=== PATIENT | male | born 1935 | race Caucasian/White ===

== ENCOUNTER 2018-01-19 17:29 | Emergency (ER) | payer OTHER ==
[~2018-01-19] VITALS: Ht 177.8 cm; Wt 77.1 kg
--- NOTE | 2018-01-19 17:37 | ED MVC/FALL/TRAUMA COMPLAINT ---
History of Present Illness General Chief Complaint: Fall Stated Complaint: S/P FALL, HIT BACK OF HEAD +LAC Source: patient Exam Limitations: no limitations Vital Signs & Intake/Output Vital Signs & Intake/Output Vital Signs Date Time Temp Pulse Resp B/P B/P Pulse O2 O2 Flow FiO2 Mean Ox Delivery Rate 01/190 98 Room Air 01/19 2043 98.4 88 18 137/78 95 Room Air Room Air 01/19 1745 98.1 72 18 172/82 97 Room Air ED Intake and Output 01/20 0000 01/19 1200 Intake Total 0 Output Total Balance 0 Intake, IV 0 Patient 170 lb Weight Weight Estimated Measurement Method Allergies Coded Allergies: Penicillins (Intermediate, UNKNOWN 01/19/18) Triage Nurses Notes Reviewed? yes Onset: Abrupt Duration: constant Timing: single episode today Severity: moderate Severity Numbers: 5 HPI: Patient is a 82-year-old male with a past medical history of GERD who presents emergency room stating today that while wearing his boots he was walking into [facility] where it was known to be raining outside patient slipped on the cement falling backwards striking the posterior aspect of his head to the pavement resulting in a laceration and acute onset of neck pain and right shoulder pain Patient denies any preceding episode of lightheaded sensation or dizziness, denies any loss of consciousness states tetanus is up-to-date Denies any lower extremity pain denies any left upper extremity pain denies any right elbow or wrist pain denies any abdominal pain chest pain with low back pain. (Wyatt Gaona) Reconcile Medications No Known Home Medications (Filiberto Mohamud DO) Past History Medical History Any Pertinent Medical History? see below for history Gastrointestinal: GERD Surgical History Surgical History: non-contributory Family History Hx Contributory? No (Wyatt Gaona) Review of Systems Review of Systems Constitutional: Reports: no symptoms. Eyes: Reports: no symptoms. Ears, Nose, Throat, Mouth: Reports: no symptoms. Respiratory: Reports: no symptoms. Cardiovascular: Reports: no symptoms. Gastrointestinal/Abdominal: Reports: no symptoms. Genitourinary: Reports: no symptoms. Musculoskeletal: Reports: see HPI. Skin: Reports: see HPI. Neurological/Psychological: Reports: see HPI. All Other Systems: Reviewed and Negative (Wyatt Gaona) Physical Exam Physical Exam General Appearance: no apparent distress, alert, comfortable Head: evidence of injury Eyes: Bilateral: normal appearance, PERRL, EOMI. 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 No CVA/TIA Diagnosis No Sepsis Present: No Sepsis Focused Exam Completed? No (Magdalena MCKINNEY,Wyatt) Progress Differential Diagnosis: aoritic dissection, abd injury, C/T/L spine injury, ext injury, ICH, pelvis injury, pnemothorax, spinal cord injury Plan of Care: Orders Procedure Date/time Status XRY-SHOULDER COMPLETE-RIGHT 01/19 1737 Active Patient upon initial evaluation was resting complete at bedside denies any alcohol intake no signs of intoxication Patient was offered pain medications and declines CT neck and head were unremarkable X-rays of the right shoulder was unremarkable for osseous injury patient had improvement of his decreased range of motion upon initial presentation discussed results with patient The scalp laceration site was topically placed with L.E.T. Irrigated with 500 mL of sterile water and Betadine was placed with sterile technique in which that I placed #1 staple margins were revised bacitracin was applied Discussed results with patient for the imaging showing no acute findings Diagnostic Imaging: Viewed by Me: Radiology Read, CT Scan. Radiology Impression: no acute abnormality, no fracture Comments: PATIENT: WYATT TABARES PRESENT AGE: 82 PATIENT ACCOUNT NO: [id number] : 33 LOCATION: [facility] ORDERING PHYSICIAN: Wyatt MCKINNEY SERVICE DATE: 01/19/18-1736 EXAM TYPE: RAD - XRY-SHOULDER COMPLETE-RIGHT EXAMINATION: SHOULDER 4 VIEWS, RIGHT CLINICAL INFORMATION: Right shoulder pain. COMPARISON: None. TECHNIQUE: AP views of the right shoulder were obtained in internal and external rotation. In addition, axillary and Y views were obtained. FINDINGS: There are no fractures or dislocations. The humeral head is seated within a well-formed glenoid. The AC joint is intact. There is age-appropriate degenerative change to the right AC joint. IMPRESSION: Age-appropriate appearance to the shoulder without evidence of acute injury. DICTATED BY: Pete Myles MD DATE/TIME DICTATED:01/19/181924 GLOST TILE SHADER:TODD DATE/TIME TRANSCRIBED:01/19/181924 PATIENT: WYATT TABARES PRESENT AGE: 82 PATIENT ACCOUNT NO: [id number] : 33 LOCATION: [facility] ORDERING PHYSICIAN: Wyatt MCKINNEY SERVICE DATE: 01/19/18 EXAM TYPE: CAT - CT CERV SPINE WO IV CONTRAST; CT HEAD WO IV CONTRAST EXAMINATIONS: CT HEAD WITHOUT CONTRAST AND CT CERVICAL SPINE WITHOUT CONTRAST CLINICAL INFORMATION: Trauma to head and neck. Pain. COMPARISON: None. TECHNIQUE: Contiguous helical images of the brain were obtained without IV contrast. Contiguous helical images of the cervical spine were obtained without IV contrast. Multiplanar reconstructions were performed. DLP: 997 mGy-cm. FINDINGS: There are no pathologic extra-axial fluid collections. The lateral, third, fourth ventricles are nondilated and concordant with the appearance of the sulci. There is no evidence for acute intraparenchymal hemorrhage or infarct. There is neither mass nor mass effect. There is no shift of midline structures. The paranasal sinuses and mastoid air cells are clear. There are no osseous lesions. The cervical vertebra are in normal alignment. There is disc height loss at C3/C4 and C4/C5 and C6/C7. Disc heights and vertebral heights are otherwise well-preserved. There are no fractures. There is no prevertebral soft tissue swelling. There is no cervical lymphadenopathy. The visualized lung apices are clear. IMPRESSION: No evidence for acute intracranial injury. No evidence for acute injury to the cervical spine. Age-appropriate degenerative change within the cervical spine. DICTATED BY: Pete Myles MD DATE/TIME DICTATED:01/19/181814 GLOST TILE SHADER:RON.TODD DATE/TIME TRANSCRIBED:01/19/181814 (Wyatt Gaona) Departure Departure Disposition: HOME OR SELF CARE Condition: Stable Clinical Impression Primary Impression: Scalp laceration Secondary Impressions: Fall, Right shoulder pain Additional Instructions: As discussed if no better in 3 days for your shoulder [facility], begin icing 20 minutes every 2 hours begin [id number] Motrin or Tylenol for pain. Begin to apply bacitracin to the scalp wound once a day for the following 4 days then return to emergency room in 7 days for staple removal. If you note signs infection or developing new concerning symptom return to emergency room. Departure Forms: Customer Survey General Discharge Information (Wyatt Gaona) Departure Prescriptions: Current Visit Scripts No Known Home Medications PA/TRANSVERSE ABDOMINAL MUSCLE NURSE Co-Sign Statement Statement: ED Attending supervision documentation- [] I saw and evaluated the patient. I have also reviewed all the pertinent lab results and diagnostic results. I agree with the findings and the plan of care as documented in the PA's/TRANSVERSE ABDOMINAL MUSCLE NURSE's documentation. [x] I have reviewed the ED Record and agree with the PA's/TRANSVERSE ABDOMINAL MUSCLE NURSE's documentation. [] Additions or exceptions (if any) to the PAs/TRANSVERSE ABDOMINAL MUSCLE NURSE's note and plan are summarized below: [] (Filiberto Mohamud DO)
--- NOTE | 2018-01-19 18:25 | CT SCAN REPORT ---
EXAMINATIONS: CT HEAD WITHOUT CONTRAST AND CT CERVICAL SPINE WITHOUT CONTRAST CLINICAL INFORMATION: Trauma to head and neck. Pain. COMPARISON: None. TECHNIQUE: Contiguous helical images of the brain were obtained without IV contrast. Contiguous helical images of the cervical spine were obtained without IV contrast. Multiplanar reconstructions were performed. DLP: 997 mGy-cm. FINDINGS: There are no pathologic extra-axial fluid collections. The lateral, third, fourth ventricles are nondilated and concordant with the appearance of the sulci. There is no evidence for acute intraparenchymal hemorrhage or infarct. There is neither mass nor mass effect. There is no shift of midline structures. The paranasal sinuses and mastoid air cells are clear. There are no osseous lesions. The cervical vertebra are in normal alignment. There is disc height loss at C3/C4 and C4/C5 and C6/C7. Disc heights and vertebral heights are otherwise well-preserved. There are no fractures. There is no prevertebral soft tissue swelling. There is no cervical lymphadenopathy. The visualized lung apices are clear. IMPRESSION: No evidence for acute intracranial injury. No evidence for acute injury to the cervical spine. Age-appropriate degenerative change within the cervical spine.
--- NOTE | 2018-01-19 19:34 | RADIOLOGY REPORT ---
EXAMINATION: SHOULDER 4 VIEWS, RIGHT CLINICAL INFORMATION: Right shoulder pain. COMPARISON: None. TECHNIQUE: AP views of the right shoulder were obtained in internal and external rotation. In addition, axillary and Y views were obtained. FINDINGS: There are no fractures or dislocations. The humeral head is seated within a well-formed glenoid. The AC joint is intact. There is age-appropriate degenerative change to the right AC joint. IMPRESSION: Age-appropriate appearance to the shoulder without evidence of acute injury.
[2018-01-19 20:43] VITALS: BP 137/78
== END 2018-01-19 21:21 ==
LOC: ERH 17:29
DX: S01.01XA Laceration without foreign body of scalp, initial encounter (principal); M25.511 Pain in right shoulder; W01.0XXA Fall on same level from slipping, tripping and stumbling without subsequent striking against object, initial encounter; Y92.511 Restaurant or cafe as the place of occurrence of the external cause; Y93.01 Activity, walking, marching and hiking
CPT/HCPCS: 73030-RT

== ENCOUNTER 2018-01-26 09:21 | Emergency (ER) | payer OTHER ==
[~2018-01-26] VITALS: Ht 177.8 cm; Wt 81.6 kg
[2018-01-26 09:23] VITALS: BP 120/70
--- NOTE | 2018-01-26 09:37 | ED ANIMAL BITE/WOUND CHECK ---
History of Present Illness General Chief Complaint: Suture Removal/Wound Recheck Stated Complaint: SUTURE REMOVAL Source: patient Exam Limitations: no limitations Vital Signs & Intake/Output Vital Signs & Intake/Output Vital Signs Date Time Temp Pulse Resp B/P B/P Pulse O2 O2 Flow FiO2 Mean Ox Delivery Rate 01/26 0953 96.4 01/26 0923 96.4 76 20 120/70 Room Air Allergies Coded Allergies: Penicillins (Intermediate, UNKNOWN 01/19/18) Reconcile Medications No Known Home Medications Triage Note: PT TO ED FOR STAPLE REMOVAL TO HEAD, PLACED 01/19. Triage Nurses Notes Reviewed? yes Onset: Abrupt Duration: week(s): (1), better, constant, continues in ED Timing: single episode today Injury Environment: home Is Injury an Animal Bite? No No Modifying Factors: none Modifying Factors: Worsens With: movement. HPI: 82-year-old male presents for staple removal. He was seen here one week ago after mechanical fall. He did have a head strike and scalp laceration was repaired with a single staple. He reports he is feeling much better. He has no headaches discharge redness or fever. He reports he still has some mild right shoulder pain. No numbness or tingling (Abdifatah Haro) Past History Travel History Traveled to [place] past 21 day No Medical History Any Pertinent Medical History? see below for history Neurological: NONE EENT: NONE Cardiovascular: NONE Respiratory: NONE Gastrointestinal: GERD Hepatic: NONE Renal: NONE Musculoskeletal: NONE Psychiatric: NONE Endocrine: NONE Blood Disorders: NONE Cancer(s): NONE Surgical History Surgical History: non-contributory Psychosocial History What is your primary language Hebrew Tobacco Use: Quit >30 days ago ETOH Use: denies use Illicit Drug Use: denies illicit drug use Family History Hx Contributory? No (Abdifatah Haro) Review of Systems Review of Systems Constitutional: Reports: no symptoms. EENTM: Reports: no symptoms. Respiratory: Reports: no symptoms. Cardiovascular: Reports: no symptoms. GI: Reports: no symptoms. Genitourinary: Reports: no symptoms. Musculoskeletal: Reports: no symptoms. Skin: Reports: see HPI (SCALP LACERATION). Neurological/Psychological: Reports: no symptoms. Hematologic/Endocrine: Reports: no symptoms. Immunologic/Allergic: Reports: no symptoms. All Other Systems: Reviewed and Negative (Abdifatah Haro) Physical Exam Physical Exam General Appearance: well developed/nourished, no apparent distress, alert, awake Head: atraumatic, normal appearance, THERE IS A 1 CM LINEAR LACERATION WITH A SINGLE STAPLE IN PLACE. nO ERYTHEMA AND NO DISCHARGE THE LACERATION IS WELL APPROXIMATED Eyes: Bilateral: normal appearance, PERRL, EOMI. Ears, Nose, Throat: hearing grossly normal Neck: normal inspection, supple, full range of motion Respiratory: no respiratory distress Peripheral Pulses: 2+ radial (R), 2+ radial (L) Back: normal inspection, normal range of motion Extremities: normal range of motion Neurologic/Psych: no motor/sensory deficits, awake, alert, oriented x 3, normal gait Skin: intact, normal color, warm/dry (Abdifatah Haro) Progress Differential Diagnosis: abscess, cellulitis, joint infection, tenosysnovitis, CONCUSSION Plan of Care: Current Medications Sig/Hayden Start time Last Medication Dose Stop Time Status Admin Acetaminophen 650 MG ONCE ONE 01/26 945 UNVr (Tylenol) 01/26 946 He had laceration is well approximated. Staple without difficulty. Discussed wound care procedures and return precautions follow-up with PRIMARY doctor for a recheck. Case discussed with Dr. JONES he agrees. (Abdifatah Haro) Departure Departure Disposition: HOME OR SELF CARE Condition: Stable Clinical Impression Primary Impression: Removal of staple Referrals: Unknown (PCP/Family) Additional Instructions: KEEP THE AREA clean and dry, LOOK for signs of infection. Tylenol for pain. Follow-up with your doctor for recheck monitor symptoms return with any concerns. Departure Forms: Customer Survey General Discharge Information Prescriptions: Current Visit Scripts No Known Home Medications (Abdifatah Haro) PA/PROFESSIONAL SERVICES CONSULTANT Co-Sign Statement Statement: ED Attending supervision documentation- [Y] I saw and evaluated the patient. I have also reviewed all the pertinent lab results and diagnostic results. I agree with the findings and the plan of care as documented in the PA's/PROFESSIONAL SERVICES CONSULTANT's documentation. [] I have reviewed the ED Record and agree with the PA's/PROFESSIONAL SERVICES CONSULTANT's documentation. [] Additions or exceptions (if any) to the PAs/PROFESSIONAL SERVICES CONSULTANT's note and plan are summarized below: [] (Gemma MARAVILLA,[facility])
== END 2018-01-26 09:54 ==
LOC: ERH 09:21
DX: S01.01XD Laceration without foreign body of scalp, subsequent encounter (principal)
CPT/HCPCS: 99282